=== PATIENT | female | born 1985 | race Caucasian/White ===

== ENCOUNTER 2022-07-15 09:59 | Inpatient (IN) | payer OTHER ==
[~2022-07-15] VITALS: Ht 170.2 cm; Wt 88.6 kg
[2022-07-15] VITALS (20 sets, daily range): BP systolic 90–120; BP diastolic 48–81; PULSE 50–81; TEMP 97.6–98.3
[2022-07-15 11:28] LABS: BASO % 0.4 % (0.0-2.0); EOS # 0.1 K/mm3 (0.0-0.7); EOS % 0.4 % (0.0-4.0); GRAN # 8.4 K/mm3 (1.4-6.5); GRAN % 74.8 % (42.2-75.2); HEMOGLOBIN 11.6 g/dl (12.5-16.0); LYMPH # 1.5 K/mm3 (1.2-3.4); LYMPH % 13.7 % (20.0-51.0); MEAN CELL VOLUME 93 fl (80.0-100.0); MEAN CORPUSCULAR HEMOGLOBIN 30 pg (27-31); MEAN CORPUSCULAR HGB CONC 33 g/dl (33.0-37.0); MEAN PLATELET VOLUME 12.4 fl (7.4-10.4); MONO # 1.1 K/mm3 (0.1-0.6); MONO % 9.9 % (1.7-9.3); PLATELET COUNT 241 K/mm3 (130-400); RED BLOOD COUNT 3.81 M/mm3 (4.10-5.30); REDCELL DISTRIBUTION WIDTH-CV 12.8 % (11.5-14.5)
[2022-07-15] MEDS ORDERED: PRENATAL (11:28)
[2022-07-15] MEDS ORDERED: TUMS500 MG (11:28)
[2022-07-15] MEDS ORDERED: COLACE 100100 MG/CAP PO (11:29)
[2022-07-15 11:31] LABS: HEMATOCRIT 35.4 % (37.0-47.0)
[2022-07-15] MEDS ORDERED: PERCOCET 325 MG1 TA2 PO (15:19)
[2022-07-15] MEDS ORDERED: MOTRIN 800800 MG/TAB PO (15:19)
[2022-07-16 00:50] VITALS: BP 115/70; PULSE 64; TEMP 98
[2022-07-16 04:00] VITALS: BP 120/64; PULSE 69; TEMP 98
[2022-07-16 07:00] VITALS: BP 105/62; PULSE 47; TEMP 98
--- NOTE | 2022-07-16 09:11 | NUR ---
Initial visit; Visit was brief, a nurse was with patient though Guide [employer]pine was able to offer congratulations and God's blessings to patient and family for the of their son. Patient thanked Guide Alpine for stopping by.
[2022-07-16 11:00] VITALS: BP 110/66; PULSE 52; TEMP 98
[2022-07-16 17:00] VITALS: BP 129/71; PULSE 45; TEMP 98
[2022-07-16 20:45] VITALS: BP 121/64; PULSE 79; TEMP 98.3
[2022-07-17 09:00] VITALS: BP 115/58; PULSE 52; TEMP 97.8
[2022-07-17 10:15] VITALS: BP 129/68; PULSE 61
== END 2022-07-17 15:18 | disposition home or self-care (01) | DRG 788 ==
LOC: OB 09:59
PROVIDERS: ADMIT Obstetrics & Gynecology
PROC: 10D00Z1 Extraction of Products of Conception, Low, Open Approach (ICD-10-PCS; principal; 2022-07-15)
DX: O32.1XX0 Maternal care for breech presentation, not applicable or unspecified (principal); O99.824 Streptococcus B carrier state complicating childbirth; Z37.0 Single live birth; O69.81X0 Labor and delivery complicated by cord around neck, without compression, not applicable or unspecified; Z3A.39 39 weeks gestation of pregnancy; Z23 Encounter for immunization
CPT/HCPCS: J0690; J1100; J1885; J2370; J2405; J2590; J7120